=== PATIENT | female | born 1945 | race Caucasian/White ===

== ENCOUNTER → 2016-11-19 | Outpatient (CLI) | payer OTHER ==
[~2016-11-19] MED LIST: EPP3/2 IM
--- NOTE | 2016-11-19 16:13 | MAMMOGRAPHY REPORT ---
THIS REPORT HAS BEEN AMENDED. BILATERAL DIGITAL SCREENING MAMMOGRAM WITH CAD: 11/19/2016 CLINICAL HISTORY: Routine screening examination. TECHNIQUE: Bilateral CC and MLO views were obtained. Current study was also evaluated with a Comput er Aided Detection (CAD) system. COMPARISON: No prior exams were available for comparison. BREAST COMPOSITION: There are scattered areas of fibroglandular density in both breasts. FINDINGS: There are benign rim calcifications and coarse calcifications scattered in the breasts. N o suspicious mass, architectural distortion or cluster of microcalcifications is seen. IMPRESSION: ACR BI-RADS CATEGORY 1: NEGATIVE There is no mammographic evidence of malignancy. Prior outside mammograms are currently being reque sted and if obtained they will be reviewed, compared to the current exam to assess for any more subt le changes, and an addendum will be made to this report. Otherwise, a 1 year screening mammogram is recommended. The patient will receive written notification of the results. Approximately 10% of breast cancers are not detected with mammography. A negative mammographic repor t should not delay biopsy if a clinically suggestive mass is present. Ember Jones M.D. ay/:11/19/2016 14:36:32 Clinical Laboratory Assistant: Dia Boyle RT(R)(M), [facility] letter sent: Normal 10/20 BI-RADS Code: ACR BI-RADS Category 1: Negative AMENDMENT: 11/27/2016 Ember Jones M.D. [facility] 10/02/2011, 10/06/2012, 10/07/2013, 2014 and 11/07/2015 became available for review. There has been no significant interval change comp ared to the prior outside mammograms. Scattered bilateral benign rim calcifications are stable. No new suspicious mass, architectural distortion or suspicious microcalcifications are seen. Recommen ded follow-up in 1 year for next annual screening mammogram. Amended BI-RADS: ACR BI-RADS Category 2: Benign letter sent: Normal 10/20
== END | disposition home or self-care (01) ==
LOC: C.MAMM 09:53
PROVIDERS: ATTEND Family Medicine
DX: Z12.31 Encounter for screening mammogram for malignant neoplasm of breast (principal)

== ENCOUNTER 2021-09-16 11:54 | Inpatient (IN) ==
--- NOTE | 2021-09-16 14:41 | Electrocardiogram Report ---
Test Reason : Blood Pressure : / mmHG Vent. Rate : 090 BPM Atrial Rate : 090 BPM P-R Int : 144 ms QRS Dur : 058 ms QT Int : 374 ms P-R-T Axes : 058 210 066 degrees QTc Int : 457 ms Sinus rhythm with Premature atrial complexes Abnormal ECG When compared with ECG of 29-AUG-2012 20:33, Premature atrial complexes are now Present Questionable change in QRS axis Borderline criteria for Inferior infarct are no longer Present Nonspecific T wave abnormality no longer evident in Lateral leads Confirmed by Bernabe Fletcher ([id number]) on 09/16/2021 2:40:38 PM Referred By: Confirmed By:Johnson Fletcher
[2021-09-16 14:51] LABS: Basophils # (auto) 0.04 K/uL (0-0.2); Basophils % (auto) 0.4 %; Hematocrit (blood only) 44.6 % (37-47); Hemoglobin 15.6 g/dL (12.0-16.0); Immature Granulocytes # (auto) 0.01 K/uL (0.00-0.02); Immature Granulocytes % (auto) 0.1 %; Lymphocytes # (auto) 1.78 K/uL (1.2-3.4); Lymphocytes % (auto) 18.1 %; Mean Corpuscular Hemoglobin 32.8 pg (25-34); Mean Corpuscular Volume 93.7 fL (80-100); Mean Platelet Volume 9.2 fL (7.4-10.4); Monocytes # (auto) 0.62 K/uL (0.11-0.59); Monocytes % (auto) 6.3 %; Neutrophils # (auto) 7.27 K/uL (1.4-6.5); Neutrophils % (auto) 74.1 %; Platelet Count 310 K/uL (130-400); RDW Coefficient of Variation 13.8 % (11.5-14.5); RDW Standard Deviation 47.1 fL (36.4-46.3); Red Blood Count 4.76 M/uL (4.2-5.4); White Blood Count 9.82 K/uL (4.8-10.8)
[2021-09-16 15:05] LABS: Partial Thromboplastin Time 25.4 Seconds (21.0-31.0); Prothrombin Time 9.9 Seconds (9.0-12.0)
[2021-09-16 15:22] LABS: Alanine Aminotransferase 36 U/L (12-78); Albumin Level 3.8 gm/dl (3.4-5.0); Aspartate Aminotransferase 26 U/L (15-37); BUN Creatinine Ratio 17.5 (10-20); Blood Urea Nitrogen 11 mg/dl (7-18); Calcium 9.1 mg/dl (8.5-10.1); Carbon Dioxide 24 mmol/L (21-32); Chloride 103 mmol/L (98-107); Est GFR (African American) 102.8 ml/min; Est GFR (Non-African American) 88.7 ml/min; Glucose 102 mg/dl (70-99); Sodium 134 mmol/L (136-145)
[2021-09-16 15:27] LABS: Alkaline Phosphatase 68 U/L (45-117); Bilirubin,Total 0.7 mg/dl (0.2-1); Globulin 3.7 gm/dl (2.5-4.0); NT Pro B Type Natriuretic Pept 1919 pg/ml (0-900); Total Protein 7.5 gm/dl (6.4-8.2); Troponin I < 0.015 ng/ml (0-0.045)
[2021-09-16] MEDS ORDERED: ALBUT/IPRATROP 3MG/0.5MG NEB 3 ML VIAL INH STA (16:08)
[2021-09-16] MEDS ORDERED: methylPREDNISolone 125 MG/2 ML VIAL IV STA (16:08)
[2021-09-16 16:15] LABS: Base Excess VBG -0.6 mEq/L; HCO3 VBG 23 mmol/L; PCO2 VBG 37 mmHg (38-50); PO2 VBG 26 mmHg; pH VBG 7.42 (7.36-7.41)
[2021-09-16 16:22] LABS: Oxygen Saturation VBG < 60.0 %
--- NOTE | 2021-09-16 16:22 | XRay Report ---
XR chest 1V portable CLINICAL HISTORY: Dyspnea. COMPARISON STUDY: No previous studies for comparison. TECHNIQUE: 1 view of the chest FINDINGS: Single frontal view of the chest demonstrates the cardiomediastinal silhouette to be within normal li mits. There is hyperinflation of the lungs with attenuation of the pulmonary vasculature peripherally characteristic of underlying chronic obstructive pulmonary disease. Mild prominence of the interstit ial markings is present which appears chronic in nature. The lungs are clear of alveolar opacities. T here is no evidence for pleural effusion. There is no evidence for vascular congestion. There is no a cute osseous pathology. IMPRESSION: No acute cardiopulmonary disease. Evidence for COPD and probable interstitial lung diseas e. ACT 112: Negative or not required by law. Electronically signed by: Rosendo Alfred M.D. 09/16/2021 4:20 PM
--- NOTE | 2021-09-16 16:29 | Emergency Department Note ---
Impression & Plan Acute exacerbation of chronic obstructive pulmonary disease, Acute hypoxemic respiratory failure ED Provider Note NAME: STEVEN ARIZMENDI AGE: 76 SEX: F : 1945 ARRIVES VIA: Walk-In INFORMANT: Patient, ED PROVIDER(S): Marcos Hanks MD Chief Complaint: Shortness of breath HPI: Patient does present due to concern for worsening shortness of breath. Patient does have a known history of COPD. The patient has completed recent doses of steroids and nebulizer treatments but without significant improvement in symptoms. The patient has had significant exertional dyspnea but denies any orthopnea. No prior history of heart disease. Patient is a former smoker. Patient is vaccinated for Covid and flu. The patient does follow with Dr. Jung with pulmonology. Patient denies any chest pains or lower extremity swelling. Patient has been significantly restricted secondary to her shortness of breath. The patient does have at home oxygen available. Patient does wear it at nighttime. Patient denies any recent travel or known sick contacts. The patient does have chronic cough but this is unchanged from prior. Patient denies any prior history of DVT or PE. ROS: See HPI for pertinent positives and negatives. A total of 10 systems were reviewed and otherwise negative. Past medical history: See below Surgical history: See below Social history: See below Physical Exam: GENERAL: Mildly uncomfortable, nasal cannula in place, wearing a mask, non- toxic. EYE EXAM: Normal conjunctiva. PERRL, no anisocoria and EOM's grossly intact w/o pain. NECK: Supple, no nuchal rigidity, no adenopathy, non-tender. No signs of meningismus. LUNGS: Decreased breath sounds throughout. Normal chest wall mechanics. HEART: NSR, no MRG. ABDOMEN: Abdomen soft, non-tender, normo-active bowel sounds, no masses, no rebound or guarding. BACK: No CVA TTP. SKIN: No rashes and no bruising. UPPER EXTREMITIES: Upper extremities are grossly normal. LOWER EXTREMITIES: Grossly normal, no edema. Negative Homans' sign bilaterally. NEURO EXAM: A&O x3, cranial nerves II-XII grossly intact, normal speech, moves all 4 extremities on command w/o issue. Differential diagnoses: Reactive airway disease, pneumonia, pneumothorax, COPD, CHF, infections, cardiac ischemia, pulmonary embolism, musculoskeletal, gastrointestinal, as well as other pathologies. Course: Patient was seen and evaluated the bedside. Full history physical exam was performed. EKG interpreted by ky Sinus with PACs, rate of 90, normal intervals, right axis. No obvious ST elevations. Imaging Studies: See Below Cardiac monitoring: An order was placed for continuous cardiac monitoring. The monitor shows a rate of 82 with sinus rhythm. MDM: Patient did present due to concern for shortness of breath. Blood work was obtained along with EKG VBG. Given the patient's significant shortness of breath and the patient desatted into the 70s just transfer from wheelchair to the bed. The patient was on 3 to 4 L nasal cannula supplemental oxygen which the patient has at home but the patient does not typically wear oxygen all the time. Patient does have significant HANNA. The patient's EKG from August 2012 is not appear that much change compared to today. Patient denies any chest pains. Troponin is not detectable but does have mild elevation in BNP. Chest x- ray shows COPD and interstitial lung disease. CT angiography was ordered. Pat ient has a normal white count H&H and platelet count. The patient's ABG shows a relatively normal pH with a PCO2 of 37. Kidney function is unremarkable. Upon reassessment the patient did have mild improvement in her symptoms. I did speak to the on-call hospitalist Maurice Rushing PA-C and the patient was admitted by Dr. Brown. Critical Care: I have personally spent 47 minutes of critical care time in direct management of this patient. This includes bedside care, interpretation of diagnostic studies, and testing, discussion with consultants, patient, and family members, and other require inpatient management activities. This 47 minutes is in excess of all separately billable procedures. Past Med/Surg History Medical History Abnormal CT scan, chest Allergic rhinitis Chronic hypoxemic respiratory failure Chronic obstructive pulmonary disease COPD (chronic obstructive pulmonary disease) with emphysema COPD, group D, by GOLD 2017 classification Degenerative joint disease, foot, left Diabetes mellitus, type 2 NIDDM Hearing deficit Hyperlipidemia Left foot pain [place] neuroma Multiple pulmonary nodules determined by computed tomography of lung Pulmonary air trapping Pulmonary emphysema Secondary pulmonary hypertension Solitary pulmonary nodule Surgical History History of cataract surgery BILATERAL History of colonoscopy History of hysterectomy CORINNA WITH BSO History of laparoscopy Family History Mother Vulva cancer Father Lung cancer Social History Smoking Status: Never smoker Second Hand Exposure: Yes (REMOTE HISTORY); Hx Alcohol Use: No Hx Substance Use: No Preferred Language: Togolese Communication Ability: Effective Instant Pot[employer] Required: No Beliefs That Will Affect Care: None Current Living Situation: Spouse Feels Safe at Home: Yes Assistive Devices: Glasses and Hearing Aid - Bilateral Allergies Allergies Allergy/AdvReac Type Severity Reaction Status Date / Time Penicillins Allergy Severe Anaphylaxis Verified 09/16/21 16:29 adhesive tape Allergy Unknown Rash Verified 09/16/21 16:29 amoxicillin Allergy Unknown Verified 09/16/21 16:29 ciprofloxacin Allergy Unknown Verified 09/16/21 16:29 fluconazole [From Diflucan] Allergy Unknown Verified 09/16/21 16:29 Sulfa (Sulfonamide Allergy Unknown Verified 09/16/21 16:29 Antibiotics) Home Meds Home Medications Medication Instructions Recorded Confirmed atorvastatin 20 mg tablet (Lipitor) 20 mg PO HS 10/26/18 09/16/21 conjugated estrogens 0.3 mg tablet 0.03 mg PO Q2D 10/26/18 09/16/21 (Premarin) metformin 500 mg tablet 500 mg PO BID 10/26/18 09/16/21 fluticasone propionate 50 1 sprays INTNAS DAILY 05/21/20 09/16/21 mcg/actuation nasal spray,suspension furosemide 20 mg tablet (Lasix) 20 mg PO .COMPLEX 05/21/20 09/16/21 ipratropium 0.5 mg-albuterol 3 mg 3 ml INH Q6H PRN 05/21/20 09/16/21 (2.5 mg base)/3 mL nebulization soln potassium chloride 10 mEq 10 meq PO .COMPLEX 05/21/20 09/16/21 capsule,extended release ascorbic acid (vitamin C) 100 mg 100 mg PO Q2D 09/16/21 09/16/21 tablet (Vitamin C) cholecalciferol (vitamin D3) 25 25 mcg PO QAM 09/16/21 09/16/21 mcg (1,000 unit) tablet (Vitamin D3) coenzyme Q10 10 mg capsule 10 mg PO Q2D 09/16/21 09/16/21 fluticasone fur. 100 mcg-umeclid 1 inh INH QAM 09/16/21 09/16/21 62.5 mcg-vilant 25 mcg inhalat.powder (Trelegy Ellipta) ibuprofen 200 mg tablet 400 mg PO Q6H PRN 09/16/21 09/16/21 multivitamin 1 tab PO Q2D 09/16/21 09/16/21 vitamin B12 0.5 mg-folic acid 1 mg 1 tab PO QAM 09/16/21 09/16/21 tablet Previous Rx's Medication Instructions Recorded Oxygen Home #2 l 05/30/20 Portable Oxygen #1 ea 06/27/20 albuterol sulfate 90 mcg/actuation 2 inh INH Q6H PRN #18 g 03/11/21 aerosol inhaler Results & Data (ED) Vital Signs Vital Signs - 24 hr 09/16/21 12:14 09/16/21 16:49 09/16/21 17:04 Temperature 36.4 C L Temperature Source Temporal Artery Scan Pulse Rate 83 Pulse Rate [Right Finger] 83 80 Respiratory Rate 18 18 18 Respiratory Effort / Characteristics Non-Labored Spontaneous Spontaneous Respiratory Depth Normal Respiratory Pattern Regular Blood Pressure 152/79 H Blood Pressure Mean 103 Pulse Oximetry 92 92 94 Oxygen Delivery Method Nasal Cannula Nasal Cannula Nasal Cannula Oxygen Flow Rate 3 4 4 Sepsis Recent Fever Within 48 Hours No Sepsis New/Unexplained Change in Mental Status No Sepsis Action Taken by Nursing No Action Required Home Medications Current Medication List: was personally reviewed by me Laboratory Data Attestation: I reviewed the patient's lab results. Result diagrams: 09/16/21 14:38 09/16/21 14:38 Lab Results 09/16/21 09/16/21 09/16/21 Range/Units 14:38 14:38 14:38 WBC 9.82 (4.8-10.8) K/uL RBC 4.76 (4.2-5.4) M/uL Hgb 15.6 (12.0-16.0) g/dL Hct 44.6 (37-47) % MCV 93.7 (80-100) fL MCH 32.8 (25-34) pg MCHC 35.0 (32-36) g/dL RDW Std Deviation 47.1 H (36.4-46.3) fL RDW Coeff of Theresa 13.8 (11.5-14.5) % Plt Count 310 (130-400) K/uL MPV 9.2 (7.4-10.4) fL Immature Gran % (Auto) 0.1 % Neut % (Auto) 74.1 % Lymph % (Auto) 18.1 % [place] % (Auto) 6.3 % Eos % (Auto) 1.0 % Baso % (Auto) 0.4 % Neut # (Auto) 7.27 H (1.4-6.5) K/uL Lymph # (Auto) 1.78 (1.2-3.4) K/uL [place] # (Auto) 0.62 H (0.11-0.59) K/uL Eos # (Auto) 0.10 (0-0.5) K/uL Baso # (Auto) 0.04 (0-0.2) K/uL Immature Gran # (Auto) 0.01 (0.00-0.02) K/uL PT 9.9 (9.0-12.0) Seconds INR 1.0 (0.9-1.1) APTT 25.4 (21.0-31.0) Seconds PTT Ratio 1.0 VBG pH (7.36-7.41) VBG pCO2 (38-50) mmHg VBG pO2 mmHg VBG HCO3 mmol/L VBG O2 Saturation % VBG Base Excess mEq/L Barometric Pressure mm/Hg Sodium 134 L (136-145) mmol/L Potassium 4.0 (3.5-5.1) mmol/L Chloride 103 (98-107) mmol/L Carbon Dioxide 24 (21-32) mmol/L Anion Gap 7.0 (3-11) BUN 11 (7-18) mg/dl Creatinine 0.61 (0.6-1.2) mg/dl Est Cr Clr Drug Dosing Not Reportable Est GFR ( Amer) 102.8 ml/min Est GFR (Non-Af Amer) 88.7 ml/min BUN/Creatinine Ratio 17.5 (10-20) Glucose 102 H (70-99) mg/dl Calcium 9.1 (8.5-10.1) mg/dl Magnesium (1.8-2.4) mg/dl Total Bilirubin 0.7 (0.2-1) mg/dl AST 26 (15-37) U/L ALT 36 (12-78) U/L Alkaline Phosphatase 68 (45-117) U/L Troponin I < 0.015 (0-0.045) ng/ml NT-Pro-B Natriuret Pep 1919 H (0-900) pg/ml Total Protein 7.5 (6.4-8.2) gm/dl Albumin 3.8 (3.4-5.0) gm/dl Globulin 3.7 (2.5-4.0) gm/dl Albumin/Globulin Ratio 1.0 (0.9-2) 09/16/21 09/16/21 Range/Units 14:38 16:02 WBC (4.8-10.8) K/uL RBC (4.2-5.4) M/uL Hgb (12.0-16.0) g/dL Hct (37-47) % MCV (80-100) fL MCH (25-34) pg MCHC (32-36) g/dL RDW Std Deviation (36.4-46.3) fL RDW Coeff of Theresa (11.5-14.5) % Plt Count (130-400) K/uL MPV (7.4-10.4) fL Immature Gran % (Auto) % Neut % (Auto) % Lymph % (Auto) % [place] % (Auto) % Eos % (Auto) % Baso % (Auto) % Neut # (Auto) (1.4-6.5) K/uL Lymph # (Auto) (1.2-3.4) K/uL [place] # (Auto) (0.11-0.59) K/uL Eos # (Auto) (0-0.5) K/uL Baso # (Auto) (0-0.2) K/uL Immature Gran # (Auto) (0.00-0.02) K/uL PT (9.0-12.0) Seconds INR (0.9-1.1) APTT (21.0-31.0) Seconds PTT Ratio VBG pH 7.42 H (7.36-7.41) VBG pCO2 37 L (38-50) mmHg VBG pO2 26 mmHg VBG HCO3 23 mmol/L VBG O2 Saturation < 60.0 % VBG Base Excess -0.6 mEq/L Barometric Pressure 731.3 mm/Hg Sodium (136-145) mmol/L Potassium (3.5-5.1) mmol/L Chloride (98-107) mmol/L Carbon Dioxide (21-32) mmol/L Anion Gap (3-11) BUN (7-18) mg/dl Creatinine (0.6-1.2) mg/dl Est Cr Clr Drug Dosing Est GFR ( Amer) ml/min Est GFR (Non-Af Amer) ml/min BUN/Creatinine Ratio (10-20) Glucose (70-99) mg/dl Calcium (8.5-10.1) mg/dl Magnesium 2.1 (1.8-2.4) mg/dl Total Bilirubin (0.2-1) mg/dl AST (15-37) U/L ALT (12-78) U/L Alkaline Phosphatase (45-117) U/L Troponin I (0-0.045) ng/ml NT-Pro-B Natriuret Pep (0-900) pg/ml Total Protein (6.4-8.2) gm/dl Albumin (3.4-5.0) gm/dl Globulin (2.5-4.0) gm/dl Albumin/Globulin Ratio (0.9-2) Administered Medications Discontinued Medications Albuterol (Albut/Ipratrop 3mg/0.5mg Neb 3 Ml Vial) 3 ml INH NOW STA Stop: 09/16/21 16:09 Last Admin: 09/16/21 16:49 Dose: 3 ml Documented by: [id number] Ioversol (Optiray 320 125ml) 120 ml IV ONCE ONE Stop: 09/16/21 16:40 Last Admin: 09/16/21 16:39 Dose: 1 ml Documented by: [id number] Methylprednisolone (Methylprednisolone 125 Mg/2 Ml Vial) 60 mg IV NOW STA Stop: 09/16/21 16:09 Last Admin: 09/16/21 16:54 Dose: 60 mg Documented by: [id number] Imaging Data Radiologist's Impression: Chest X-Ray 09/16/21 13:59 XR chest 1V portable CLINICAL HISTORY: Dyspnea. COMPARISON STUDY: No previous studies for comparison. TECHNIQUE: 1 view of the chest FINDINGS: Single frontal view of the chest demonstrates the cardiomediastinal silhouette to be within normal limits. There is hyperinflation of the lungs with attenuation of the pulmonary vasculature peripherally characteristic of underlying chronic obstructive pulmonary disease. Mild prominence of the interstitial markings is present which appears chronic in nature. The lungs are clear of alveolar opacities. There is no evidence for pleural effusion. There is no evidence for vascular congestion. There is no acute osseous pathology. IMPRESSION: No acute cardiopulmonary disease. Evidence for COPD and probable interstitial lung disease. ACT 112: Negative or not required by law. Electronically signed by: Rosendo Alfred M.D. 09/16/2021 4:20 PM Chest CTA 09/16/21 16:09 CT ANGIOGRAM OF THE CHEST CLINICAL HISTORY: Dyspnea. COMPARISON STUDY: Chest CT dated 07/10/2020. Chest x-ray dated 09/16/2021. TECHNIQUE: Following the IV administration of 120 cc of Optiray 320, CT angiogram of the chest was performed from the upper abdomen to the thoracic inlet utilizing the pulmonary embolus protocol. Images are reviewed in the axial, sagittal, and coronal planes. 3-D MIPS images are created and assessed. IV contrast was administered without complication. A dose lowering technique was utilized adhering to the principles of ALARA. The examination is compromised by motion artifact. CT DOSE: 243.75 mGy.cm FINDINGS: Thyroid: Imaged portions of the thyroid gland are normal in size and attenuation. Thoracic aorta: There is atherosclerotic calcification of the thoracic aorta, which is normal in caliber and demonstrates standard 3-vessel arch anatomy. No dissection is seen. There is at least mild stenosis at the origin of the left subclavian artery. Pulmonary vasculature: The pulmonary trunk is normal in caliber. There are no filling defects identified in main, lobar, or proximal segmental pulmonary branches to suggest pulmonary embolus. Evaluation of the segmental and subsegmental branches is significantly degraded in the lower lobes by motion artifact. Heart: The heart is normal in size and without pericardial effusion. There are coronary artery calcifications. Reflux of contrast into the IVC and hepatic veins suggests cardiac dysfunction. Lungs and pleural spaces: Evaluation of the lung parenchyma is compromised by mo tion artifact. Advanced emphysematous change is identified. There are small pleural effusions with bibasilar atelectasis the trachea and central airways appear clear. A 7 mm pleural-based nodule is seen in the left lower lobe along the major fissure on image #140. A six-month or pleural-based nodule in the left lower lobe as seen on image #163. A pleural-based nodule in the right lower lobe along the major fissure on image #127 is largely obscured by motion artifact. This is likely unchanged from previous. Mediastinum: There are mildly enlarged and is dominant lymph nodes. An AP window node measures 11 mm in short axis. Precarinal nodes measure up to 15 mm in short axis. Lyly: Enlarged hilar nodes measure up to 16 mm in short axis. Axillae: There is no axillary lymphadenopathy. Upper abdomen: Partially visualized upper abdominal viscera is within normal limits. Skeletal structures: The skeletal structures are osteopenic. Degenerative change and hyperkyphosis are noted in the thoracic spine. No lytic or blastic bony lesions are seen. Arthritic change is seen in the shoulders. IMPRESSION: 1. Motion compromised examination. 2. There is no evidence of pulmonary embolus in the main, lobar, or proximal segmental pulmonary arteries. Evaluation of the segmental and subsegmental lower lobe pulmonary arteries is significantly degraded by motion. 3. Advanced emphysema. 4. Small pleural effusions. 5. Mildly enlarged mediastinal and hilar lymph nodes are nonspecific and may be reactive. Clinical correlation will be required. 6. Subcentimeter pulmonary and pleural-based nodules are nonspecific and likely unchanged from prior studies. 7. Additional findings as above. ACT 112: Negative or not required by law. Electronically signed by: Moiz Powell M.D. 09/16/2021 5:10 PM Discharge Plan Visit Data Chief Complaint: Respiratory Problems Stated Complaint: HARD TO BREATHE,REF BY DOC ED Provider: Marcos Hanks Discharge Problem: Acute exacerbation of chronic obstructive pulmonary disease, Acute hypoxemic respiratory failure Patient Disposition: Admitted As Inpatient Forms Stand Alone Forms: [facility] Prescriptions Prescriptions: No Action (DME) Oxygen Home Liters Per Minute See Rx Instructions .ROUTE .MEDSUPPLY Qty: 2 RF: 0 (DME) Portable Oxygen Misc See Rx Instructions .ROUTE .MEDSUPPLY Qty: 1 RF: 0 albuterol sulfate 90 mcg/actuation HFA aerosol inhaler 2 inh INH Q6H PRN (Reason: shortness of breath or wheezing) Qty: 18 RF: 2 furosemide [Lasix] 20 mg tablet 20 mg PO .COMPLEX RF: 0 ipratropium-albuterol 0.5 mg-3 mg(2.5 mg base)/3 mL solution for nebulization 3 ml INH Q6H PRN (Reason: Shortness Of Breath) RF: 0 fluticasone propionate 50 mcg/actuation spray,suspension 1 sprays INTNAS DAILY RF: 0 potassium chloride 10 mEq capsule, extended release 10 meq PO .COMPLEX RF: 0 metformin 500 mg Tablet 500 mg PO BID RF: 0 atorvastatin [Lipitor] 20 mg Tablet 20 mg PO HS RF: 0 Premarin 0.3 mg Tablet 0.03 mg PO Q2D RF: 0 multivitamin Tablet 1 tab PO Q2D RF: 0 coenzyme Q10 10 mg Capsule 10 mg PO Q2D RF: 0 Vitamin C 100 mg Tablet 100 mg PO Q2D RF: 0 ibuprofen 200 mg Tablet 400 mg PO Q6H PRN (Reason: Pain) RF: 0 vitamin [id number] 0.5-1 mg Tablet 1 tab PO QAM RF: 0 cholecalciferol (vitamin D3) [Vitamin D3] 25 mcg (1,000 unit) Tablet 25 mcg PO QAM RF: 0 Trelegy Ellipta 100-62.5-25 mcg blister with device 1 inh INH QAM RF: 0 Referrals Referrals: Gary Sawant MD [Primary Care Provider] -
[2021-09-16] MEDS ORDERED: OPTIRAY 320 125ml IV ONE (16:39)
--- NOTE | 2021-09-16 17:07 | History & Physical Report ---
Date of Service September 16, 2021 Assessment & Plan (1) Acute exacerbation of chronic obstructive pulmonary disease: (2) Acute hypoxemic respiratory failure: Plan: This is a 76-year-old female with PMH of COPD requiring oxygen at night, ILD, type 2 diabetes, dyslipidemia and other medical problems listed below who presents with progressive shortness of breath over the past few days. Progressive dyspnea on exertion. Completed Azythromycin course x 2 and prednis one taper x 1 in last month as outpatient Desaturated into high 70s when ambulating from wheelchair to bed in ED - now 92% on 4L NC No leukocytosis. VBG pH 7.4. Flu negative, covid PCR pending Chest CTA motion compromised but no evidence of PE, advanced emphysema, small pleural effusions, mildly enlarged mediastinal and hilar lymph nodes that are nonspecific. Pulm nodules unchanged from prior studies Afebrile, no leukocytosis or opacities on imaging to suggest PNA Continue solu-medrol 40mg IV Q8H, Duonebs QIDR, incentive spirometry, supplemental O2 PT/OT evaluations once more stable from respiratory standpoint (3) Diabetes mellitus, type 2: Plan: A1c 6.3 in May 2021. 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 Continue losartan, Toprol, Lasix MWF (5) Hyperlipidemia: Plan: Continue statin DVT Ppx: SQ Lovenox Code status: FULL PCP: Jese Dispo: Admitted to [facility] Patient seen in collaboration with Dr. Brown. Please see addendum. History of Present Illness Chief Complaint: Shortness of breath Primary Care Provider: Gary Sawant MD This is a 76-year-old female with PMH of COPD requiring oxygen at night, ILD, type 2 diabetes, dyslipidemia and other medical problems listed below who presents with progressive shortness of breath over the past few days months. At baseline, patient is able to ambulate and complete ADLs with minimal shortness of breath. Always wears 2 L NC O2 at bedtime and sometimes during the day when completing chores. However, has felt a flare of shortness of breath with exertion since last month when she completed course of azithromycin and prednisone taper. Symptoms persisted, and patient completed another course of azithromycin and followed up with PCP. Was noted to desaturate on home O2 with any type of movement like ambulation out of wheelchair or into shower. Even while on oxygen, notes saturation went down into the high 70s when she attempted to shower today. Was seen in clinic and urged to come to ED for further evaluation. Patient currently saturating at 94% on 4 L nasal cannula. Denies any fever, chills, cough or recent known viral infection. Did have some chest pain a month ago but had EKGs done in clinic that were unchanged. Chest pain is not persisted since then. Denies any wheezing, congestion, nausea, vomiting, abdominal pain, dysuria, diarrhea or constipation. Has been taking Trelegy inhaler daily as well as albuterol as needed. Is not very compliant with nebulizer treatments at home. Follows with Dr. Perez in pulmonology clinic. Allergies Allergy/AdvReac Type Severity Reaction Status Date / Time Penicillins Allergy Severe Anaphylaxis Verified 09/16/21 16:29 adhesive tape Allergy Unknown Rash Verified 09/16/21 16:29 amoxicillin Allergy Unknown Verified 09/16/21 16:29 ciprofloxacin Allergy Unknown Verified 09/16/21 16:29 fluconazole [From Diflucan] Allergy Unknown Verified 09/16/21 16:29 Sulfa (Sulfonamide Allergy Unknown Verified 09/16/21 16:29 Antibiotics) Home Medications Medication Instructions Recorded Confirmed Type atorvastatin 20 mg tablet (Lipitor) 20 mg PO HS 10/26/18 09/16/21 History conjugated estrogens 0.3 mg tablet 0.03 mg PO Q2D 10/26/18 09/16/21 History (Premarin) metformin 500 mg tablet 500 mg PO BID 10/26/18 09/16/21 History fluticasone propionate 50 1 sprays INTNAS DAILY 05/21/20 09/16/21 History mcg/actuation nasal spray,suspension furosemide 20 mg tablet (Lasix) 20 mg PO .COMPLEX 05/21/20 09/16/21 History ipratropium 0.5 mg-albuterol 3 mg 3 ml INH Q6H PRN 05/21/20 09/16/21 History (2.5 mg base)/3 mL nebulization soln potassium chloride 10 mEq 10 meq PO .COMPLEX 05/21/20 09/16/21 History capsule,extended release Oxygen Home #2 l 05/30/20 07/12/21 Rx Portable Oxygen #1 ea 06/27/20 07/12/21 Rx albuterol sulfate 90 mcg/actuation 2 inh INH Q6H PRN #18 g 03/11/21 09/16/21 Rx aerosol inhaler ascorbic acid (vitamin C) 100 mg 100 mg PO Q2D 09/16/21 09/16/21 History tablet (Vitamin C) cholecalciferol (vitamin D3) 25 25 mcg PO QAM 09/16/21 09/16/21 History mcg (1,000 unit) tablet (Vitamin D3) coenzyme Q10 10 mg capsule 10 mg PO Q2D 09/16/21 09/16/21 History fluticasone fur. 100 mcg-umeclid 1 inh INH QAM 09/16/21 09/16/21 History 62.5 mcg-vilant 25 mcg inhalat.powder (Trelegy Ellipta) ibuprofen 200 mg tablet 400 mg PO Q6H PRN 09/16/21 09/16/21 History losartan 25 mg tablet 25 mg PO DAILY 09/16/21 09/16/21 History meclizine 25 mg tablet 12.5 mg PO TID PRN 09/16/21 09/16/21 History metoprolol succinate 25 mg 12.5 mg PO DAILY 09/16/21 09/16/21 History tablet,extended release 24 hr multivitamin 1 tab PO Q2D 09/16/21 09/16/21 History promethazine 25 mg tablet 25 mg PO Q6H PRN 09/16/21 09/16/21 History vitamin B12 0.5 mg-folic acid 1 mg 1 tab PO QAM 09/16/21 09/16/21 History tablet Past Med/Surg History Medical History (Updated 09/16/21 @ 19:07 by Sharita Rushing PA-C) Abnormal CT scan, chest Allergic rhinitis Chronic hypoxemic respiratory failure Chronic obstructive pulmonary disease COPD (chronic obstructive pulmonary disease) with emphysema COPD, group D, by GOLD 2017 classification Degenerative joint disease, foot, left Diabetes mellitus, type 2 NIDDM Hearing deficit History of colon polyps HTN (hypertension) Hyperlipidemia [place] neuroma Multiple pulmonary nodules determined by computed tomography of lung Pulmonary air trapping Pulmonary emphysema Secondary pulmonary hypertension Solitary pulmonary nodule Surgical History History of cataract surgery BILATERAL History of colonoscopy History of hysterectomy CORINNA WITH BSO History of laparoscopy Family History Mother Vulva cancer Father Lung cancer Social History Smoking Status: Never smoker Second Hand Exposure: Yes (REMOTE HISTORY); Hx Alcohol Use: No Hx Substance Use: No Preferred Language: Malaysian Communication Ability: Effective 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 Physical Exam Physical Exam: General Appearance: WD/WN, vitals as above, NAD, sitting up in bed, pleasant, conversing easily Head: normocephalic, atraumatic Eyes: normal inspection, PERRL, conjunctivae normal, anicteric sclerae ENT: external ear and nose normal, oropharynx normal Neck: normal visual inspection, trachea midline, no thyromegaly Respiratory: normal respiratory effort, decreased lung sounds throughout. No wheeze, rales or rhonchi. No accessory muscle use Cardiovascular: regular rate, rhythm, no murmur, normal peripheral pulses, no BLE edema. Vessels: no JVD Chest: normal inspection of chest Abdomen/GI: normal bowel sounds, soft, nontender, no hepatosplenomegaly Extremities/Musculoskeletal: no cyanosis or clubbing, extremities motor strength 5/5 Neurologic: PERRL, EOMI, accommodation nl, no face palsy, no dysarthria, CN's II-XI intact bilaterally and moves all extremities Psychiatric: A+Ox3, euthymic affect Skin: no rashes, normal color, warm/dry Results & Data Results & [facility] ([facility]) Vital Signs (Past 12 Hours) Vital Signs Temp Pulse Pulse Resp BP Pulse Ox 09/16/21 16:49 83 18 92 09/16/21 12:14 36.4 C L 83 18 152/79 H 92 Laboratory Results Short CBC 09/16/21 Range/Units 14:38 WBC 9.82 (4.8-10.8) K/uL Hgb 15.6 (12.0-16.0) g/dL Hct 44.6 (37-47) % Plt Count 310 (130-400) K/uL BMP 09/16/21 14:38 Sodium 134 L Potassium 4.0 Chloride 103 Carbon Dioxide 24 BUN 11 Creatinine 0.61 Glucose 102 H Calcium 9.1 Cardiac Enzymes 09/16/21 Range/Units 14:38 Troponin I < 0.015 (0-0.045) ng/ml Liver Function 09/16/21 Range/Units 14:38 Total Bilirubin 0.7 (0.2-1) mg/dl AST 26 (15-37) U/L ALT 36 (12-78) U/L Alkaline Phosphatase 68 (45-117) U/L Albumin 3.8 (3.4-5.0) gm/dl Diagnostic Findings Short CBC 09/16/21 Range/Units 14:38 WBC 9.82 (4.8-10.8) K/uL Hgb 15.6 (12.0-16.0) g/dL Hct 44.6 (37-47) % Plt Count 310 (130-400) K/uL BMP 09/16/21 14:38 Sodium 134 L Potassium 4.0 Chloride 103 Carbon Dioxide 24 BUN 11 Creatinine 0.61 Glucose 102 H Calcium 9.1 Cardiac Enzymes 09/16/21 Range/Units 14:38 Troponin I < 0.015 (0-0.045) ng/ml Liver Function 09/16/21 Range/Units 14:38 Total Bilirubin 0.7 (0.2-1) mg/dl AST 26 (15-37) U/L ALT 36 (12-78) U/L Alkaline Phosphatase 68 (45-117) U/L Albumin 3.8 (3.4-5.0) gm/dl Supervising Physician Co-Signing Physician Notes Attending addendum The patient was seen and examined in emergency room and in presence of the Has been more shortness of breath for 1 week Denies any fever and or chills Finished 2 courses of azithromycin recently On examination Short of breath at rest and requiring 4 L to maintain saturation Chest-decreased breath sounds all over Heart-S1-S2, regular Abdomen-benign Extremities-no edema 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
--- NOTE | 2021-09-16 17:11 | CT Scan Report ---
CT ANGIOGRAM OF THE CHEST CLINICAL HISTORY: Dyspnea. COMPARISON STUDY: Chest CT dated 07/10/2020. Chest x-ray dated 09/16/2021. TECHNIQUE: Following the IV administration of 120 cc of Optiray 320, CT angiogram of the chest was pe rformed from the upper abdomen to the thoracic inlet utilizing the pulmonary embolus protocol. Images are reviewed in the axial, sagittal, and coronal planes. 3-D MIPS images are created and assessed. I V contrast was administered without complication. A dose lowering technique was utilized adhering to the principles of ALARA. The examination is compromised by motion artifact. CT DOSE: 243.75 mGy.cm FINDINGS: Thyroid: Imaged portions of the thyroid gland are normal in size and attenuation. Thoracic aorta: There is atherosclerotic calcification of the thoracic aorta, which is normal in kimmy ammon and demonstrates standard 3-vessel arch anatomy. No dissection is seen. There is at least mild st enosis at the origin of the left subclavian artery. Pulmonary vasculature: The pulmonary trunk is normal in caliber. There are no filling defects identif ied in main, lobar, or proximal segmental pulmonary branches to suggest pulmonary embolus. Evaluation of the segmental and subsegmental branches is significantly degraded in the lower lobes by motion ar tifact. Heart: The heart is normal in size and without pericardial effusion. There are coronary artery calcif ications. Reflux of contrast into the IVC and hepatic veins suggests cardiac dysfunction. Lungs and pleural spaces: Evaluation of the lung parenchyma is compromised by motion artifact. Advanc ed emphysematous change is identified. There are small pleural effusions with bibasilar atelectasis t he trachea and central airways appear clear. A 7 mm pleural-based nodule is seen in the left lower lo be along the major fissure on image #140. A six-month or pleural-based nodule in the left lower lobe as seen on image #163. A pleural-based nodule in the right lower lobe along the major fissure on imag e #127 is largely obscured by motion artifact. This is likely unchanged from previous. Mediastinum: There are mildly enlarged and is dominant lymph nodes. An AP window node measures 11 mm in short axis. Precarinal nodes measure up to 15 mm in short axis. Lyly: Enlarged hilar nodes measure up to 16 mm in short axis. Axillae: There is no axillary lymphadenopathy. Upper abdomen: Partially visualized upper abdominal viscera is within normal limits. Skeletal structures: The skeletal structures are osteopenic. Degenerative change and hyperkyphosis ar e noted in the thoracic spine. No lytic or blastic bony lesions are seen. Arthritic change is seen in the shoulders. IMPRESSION: 1. Motion compromised examination. 2. There is no evidence of pulmonary embolus in the main, lobar, or proximal segmental pulmonary [place]. Evaluation of the segmental and subsegmental lower lobe pulmonary arteries is significantly deg raded by motion. 3. Advanced emphysema. 4. Small pleural effusions. 5. Mildly enlarged mediastinal and hilar lymph nodes are nonspecific and may be reactive. Clinical co rrelation will be required. 6. Subcentimeter pulmonary and pleural-based nodules are nonspecific and likely unchanged from prior studies. 7. Additional findings as above. ACT 112: Negative or not required by law. Electronically signed by: Moiz Powell M.D. 09/16/2021 5:10 PM
[2021-09-16] MEDS ORDERED: ALBUTEROL HFA 8 GM INHALER INH PRN (17:35)
[2021-09-16] MEDS ORDERED: ALBUT/IPRATROP 3MG/0.5MG NEB 3 ML VIAL INH PRN (17:35)
[2021-09-16] MEDS ORDERED: NON-FORMULARY MEDICATION (Ascorbic Acid (Vitamin C) [Vitamin C] 100 mg Tablet) PO SCH (17:45)
[2021-09-16 17:51] LABS: Influenza A virus by PCR Negative (Negative); Influenza B virus by PCR Negative (Negative)
[2021-09-16] MEDS ORDERED: MECLIZINE 12.5 MG TAB PO PRN (19:36)
[2021-09-16] MEDS ORDERED: CARBOHYDRATES FOR HYPOGLYCEMIA PO PRN ×2 (19:45→23:18)
[2021-09-16] MEDS ORDERED: GLUCAGON FOR INJ 1 MG VIAL IM PRN (19:45)
[2021-09-16] MEDS ORDERED: GLUCOSE 10 TABS/TUBE PO PRN ×2 (19:45→23:18)
[2021-09-16] MEDS ORDERED: DEXTROSE 50% 50 ML SYRINGE IV PRN ×2 (19:45→23:18)
[2021-09-16] MEDS ORDERED: GLUCOSE 40% GEL 15 GM TUBE PO PRN ×2 (19:45→23:18)
[2021-09-16] MEDS ORDERED: ACETAMINOPHEN 325 MG TAB PO PRN (23:18)
[2021-09-16] MEDS ORDERED: GLUCAGON FOR INJ 1 MG VIAL SQ PRN (23:18)
[2021-09-16] MEDS ORDERED: POLYETHYLENE (MIRALAX) 17 GM PACK PO PRN (23:18)
[2021-09-16] MEDS: ATORVASTATIN 20 MG TAB PO SCH (23:37)
[2021-09-16] MEDS: INSULIN ASPART 100 UNITS/ML 3 ML PEN SC SCH (23:37)
[2021-09-16] MEDS: ALBUT/IPRATROP 3MG/0.5MG NEB 3 ML VIAL NEB SCH (23:42)
[2021-09-17] MEDS: ENOXAPARIN INJ 40 MG/0.4 ML SYR SQ SCH ×2 (00:01→21:18)
[2021-09-17] MEDS: methylPREDNISolone 40 MG in SYRINGE 0 ML IV SCH ×3 (03:23→17:59)
[2021-09-17 06:47] LABS: Hematocrit (blood only) 41.7 % (37-47); Hemoglobin 14.5 g/dL (12.0-16.0); Mean Corpuscular Hemoglobin 32.5 pg (25-34); Mean Corpuscular Hgb Conc 34.8 g/dL (32-36); Mean Corpuscular Volume 93.5 fL (80-100); Mean Platelet Volume 9.4 fL (7.4-10.4); Platelet Count 291 K/uL (130-400); RDW Coefficient of Variation 13.8 % (11.5-14.5); RDW Standard Deviation 47.1 fL (36.4-46.3); Red Blood Count 4.46 M/uL (4.2-5.4)
[2021-09-17 07:00] LABS: Estimated Average Glucose 128 mg/dl; Hemoglobin A1C 6.1 % (4.5-5.6)
[2021-09-17 07:09] LABS: BUN Creatinine Ratio 20.8 (10-20); Calcium 8.8 mg/dl (8.5-10.1); Creatinine Clr Calc Pharmacy 80.7 ml/min; Est GFR (African American) 108.3 ml/min; Est GFR (Non-African American) 93.5 ml/min; Magnesium 2.1 mg/dl (1.8-2.4); Phosphorus 4.4 mg/dl (2.5-4.9); Potassium 4.5 mmol/L (3.5-5.1)
[2021-09-17] MEDS: ALBUT/IPRATROP 3MG/0.5MG NEB 3 ML VIAL NEB SCH ×4 (07:40→17:51)
[2021-09-17] MEDS: METOPROLOL SUCC 25MG EXT REL TAB PO SCH (08:28)
[2021-09-17] MEDS: CHOLECALCIFEROL 1,000 UNITS 25 MCG TAB PO SCH (08:28)
[2021-09-17] MEDS: UMECLIDINIUM/VILANTEROL 62.5/25MCG 7 PUFFS/INHALER INH SCH (08:29)
[2021-09-17] MEDS: FLUTICASONE PROPIONATE NA SPR 16 GM BTL NAE SCH (08:29)
[2021-09-17] MEDS: LOSARTAN POTASSIUM 25 MG TAB PO SCH (08:29)
[2021-09-17] MEDS: FLUTICASONE FUROATE 100MCG 14 PUFFS/INHALER INH SCH (08:29)
[2021-09-17] MEDS: INSULIN ASPART 100 UNITS/ML 3 ML PEN SC SCH ×4 (08:30→21:17)
[2021-09-17] MEDS ORDERED: NON-FORMULARY MEDICATION (Vitamin B12-Folic Acid 0.5-1 mg Tablet) PO SCH (09:00)
--- NOTE | 2021-09-17 12:04 | Hospitalist Progress Note ---
Date of Service September 17, 2021 Assessment & Plan (1) Acute exacerbation of chronic obstructive pulmonary disease: (2) Acute hypoxemic respiratory failure: Plan: This is a 76-year-old female with PMH of COPD requiring oxygen at night, ILD, type 2 diabetes, dyslipidemia and other medical problems listed below who presents with progressive shortness of breath over the past few days. Progressive dyspnea on exertion. Completed Azythromycin course x 2 and prednis one taper x 1 in last month as outpatient Desaturated into high 70s when ambulating from wheelchair to bed in ED - now 92% on 4L NC No leukocytosis. VBG pH 7.4. Flu negative, covid PCR pending Chest CTA motion compromised but no evidence of PE, advanced emphysema, small pleural effusions, mildly enlarged mediastinal and hilar lymph nodes that are nonspecific. Pulm nodules unchanged from prior studies Afebrile, no leukocytosis or opacities on imaging to suggest PNA Continue solu-medrol 40mg IV Q8H, Duonebs QIDR, incentive spirometry, supplemental O2 PT/OT evaluations once more stable from respiratory standpoint Pt said that she has oxygen at home and she supposed to use it daily (3) Diabetes mellitus, type 2: Plan: A1c 6.3 in May 2021. 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 Continue losartan, Toprol, Lasix MWF (5) Hyperlipidemia: Plan: Continue statin DVT Ppx: SQ Lovenox Code status: FULL PCP: Jese Dispo: Will discharge once medically stable Admission and Anticipated Discharge Date Admission Date: September 16, 2021 Subjective Pt was seen and examined for follow up of SOB Pt said that breathing is a little better this morning He said that she starting to bring her phlegm saturated well on 2L NC oxygen supplement Denies any chest pain, palpitation, dizziness and SOB Review of Systems Review of Systems: All systems reviewed & are unremarkable except as noted in Subjective Physical Exam Physical Exam: General- No acute distress Head- atraumatic Eyes- PERRL, EOMI, ENT- oropharynx clear Neck- supple, no JVD Lungs-+diminished BS Heart- regular rhythm; no murmur Abdomen- normal bowel sounds, soft, nontender Extremities- no calf tenderness Neuro- alert, oriented x 3; PERRL, EOMI; no facial palsy; no dysarthria Skin- warm & dry Results & Data Results & Data ([facility]) Vital Signs (Past 12 Hours) Vital Signs Temp Pulse Pulse Resp BP Pulse Ox 09/17/21 11:28 36.5 C 73 20 96/60 L 94 09/17/21 10:39 77 18 91 09/17/21 07:44 36.7 C 69 18 109/62 94 09/17/21 07:41 67 18 92 09/17/21 07:00 70 09/17/21 02:57 36.6 C 77 18 108/65 91 09/17/21 00:53 36.7 C 76 18 104/59 L 93
[2021-09-17] MEDS: ATORVASTATIN 20 MG TAB PO SCH (21:19)
[2021-09-18] MEDS: methylPREDNISolone 40 MG in SYRINGE 0 ML IV SCH ×3 (03:30→17:05)
[2021-09-18 06:42] LABS: Hemoglobin 14.3 g/dL (12.0-16.0); Mean Corpuscular Hemoglobin 32.6 pg (25-34); Mean Corpuscular Hgb Conc 34.9 g/dL (32-36); Mean Corpuscular Volume 93.6 fL (80-100); Mean Platelet Volume 9.1 fL (7.4-10.4); Platelet Count 287 K/uL (130-400); RDW Coefficient of Variation 13.6 % (11.5-14.5); RDW Standard Deviation 46.6 fL (36.4-46.3); Red Blood Count 4.38 M/uL (4.2-5.4); White Blood Count 10.17 K/uL (4.8-10.8)
[2021-09-18 07:30] LABS: BUN Creatinine Ratio 26.1 (10-20); Calcium 8.6 mg/dl (8.5-10.1); Creatinine Clr Calc Pharmacy 85.7 ml/min; Est GFR (African American) 110.5 ml/min; Est GFR (Non-African American) 95.3 ml/min
[2021-09-18] MEDS: ALBUT/IPRATROP 3MG/0.5MG NEB 3 ML VIAL NEB SCH ×3 (07:33→15:19)
[2021-09-18] MEDS ORDERED: MULTIVITAMIN TAB PO SCH (09:00)
[2021-09-18] MEDS ORDERED: FUROSEMIDE 20 MG TAB PO SCH (09:00)
[2021-09-18] MEDS ORDERED: POTASSIUM CHLORIDE 10 MEQ TABCR PO SCH (09:00)
[2021-09-18] MEDS: INSULIN ASPART 100 UNITS/ML 3 ML PEN SC SCH ×2 (09:19→12:36)
[2021-09-18] MEDS: CHOLECALCIFEROL 1,000 UNITS 25 MCG TAB PO SCH (09:20)
[2021-09-18] MEDS: UMECLIDINIUM/VILANTEROL 62.5/25MCG 7 PUFFS/INHALER INH SCH (09:21)
[2021-09-18] MEDS: FLUTICASONE PROPIONATE NA SPR 16 GM BTL NAE SCH (09:21)
[2021-09-18] MEDS: FLUTICASONE FUROATE 100MCG 14 PUFFS/INHALER INH SCH (09:21)
[2021-09-18] MEDS: LOSARTAN POTASSIUM 25 MG TAB PO SCH (09:22)
[2021-09-18] MEDS: METOPROLOL SUCC 25MG EXT REL TAB PO SCH (09:22)
[2021-09-18 13:00] LABS: Appearance Urine Cloudy (Clear); Bacteria Urine Automated 4+ (Negative); Bilirubin Urine Negative (Negative); Blood Urine Negative (Negative); Color Urine Yellow; Epithelial Cell Urine Auto >30 /lpf (0-5); Glucose Urine UA Negative (Negative); Ketones Urine Negative (Negative); Leukocyte Esterase Urine Trace (Negative); Nitrite Urine Positive (Negative); Protein Urine Negative (Negative); RBC Urine Automated 0-4 /hpf (0-4); Specific Gravity Urine 1.018 (1.000-1.030); Urobilinogen Urine Negative (Negative)
[2021-09-18] MEDS ORDERED: cefTRIAXone SODIUM 1,000 MG in DEXTROSE 5% 50 ML IV SCH (13:45)
[2021-09-18] MEDS ORDERED: AZTREONAM 1,000 MG in DEXTROSE 5% 100 ML IV SCH (14:00)
[2021-09-18] MEDS ORDERED: NITROFURANTOIN MONOHYDRATE 100 MG CAP PO SCH (16:45)
--- NOTE | 2021-09-24 10:50 | Discharge Summary ---
Date of Service September 18, 2021 Admission HPI Per Admitting Provider This is a 76-year-old female with PMH of COPD requiring oxygen at night, ILD, type 2 diabetes, dyslipidemia and other medical problems listed below who presents with progressive shortness of breath over the past few days months. At baseline, patient is able to ambulate and complete ADLs with minimal shortness of breath. Always wears 2 L NC O2 at bedtime and sometimes during the day when completing chores. However, has felt a flare of shortness of breath with exertion since last month when she completed course of azithromycin and prednisone taper. Symptoms persisted, and patient completed another course of azithromycin and followed up with PCP. Was noted to desaturate on home O2 with any type of movement like ambulation out of wheelchair or into shower. Even while on oxygen, notes saturation went down into the high 70s when she attempted to shower today. Was seen in clinic and urged to come to ED for further evaluation. Patient currently saturating at 94% on 4 L nasal cannula. Denies any fever, chills, cough or recent known viral infection. Did have some chest pain a month ago but had EKGs done in clinic that were unchanged. Chest pain is not persisted since then. Denies any wheezing, congestion, nausea, vomiting, abdominal pain, dysuria, diarrhea or constipation. Has been taking Trelegy inhaler daily as well as albuterol as needed. Is not very compliant with nebulizer treatments at home. Follows with Dr. Perez in pulmonology clinic. Admission Exam Per Admitting Provider General Appearance:WD/WN, vitals as above, NAD, sitting up in bed, pleasant, conversing easily Head: normocephalic, atraumatic Eyes:normal inspection, PERRL, conjunctivae normal, anicteric sclerae ENT: external ear and nose normal, oropharynx normal Neck: normal visual inspection, trachea midline, no thyromegaly Respiratory:normal respiratory effort, decreased lung sounds throughout. No wheeze, rales or rhonchi. No accessory muscle use Cardiovascular: regular rate, rhythm, no murmur, normal peripheral pulses, no BLE edema. Vessels: no JVD Chest: normal inspection of chest Abdomen/GI: normal bowel sounds, soft, nontender, no hepatosplenomegaly Extremities/Musculoskeletal: no cyanosis or clubbing, extremities motor strength 5/5 Neurologic: PERRL, EOMI, accommodation nl, no face palsy, no dysarthria, CN's II-XI intact bilaterally and moves all extremities Psychiatric:A+Ox3, euthymic affect Skin: no rashes, normal color, warm/dry Principal Diagnosis (1) Acute exacerbation of chronic obstructive pulmonary disease: (2) Acute hypoxemic respiratory failure: (3) Diabetes mellitus, type 2: (4) HTN (hypertension): (5) Hyperlipidemia: Discharge Exam General- No acute distress Head- atraumatic Eyes- PERRL, EOMI, ENT- oropharynx clear Neck- supple, no JVD Lungs-+diminished BS Heart- regular rhythm; no murmur Abdomen- normal bowel sounds, soft, nontender Extremities- no calf tenderness Neuro- alert, oriented x 3; PERRL, EOMI; no facial palsy; no dysarthria Skin- warm & dry Discharge Data Allergies Allergy/AdvReac Type Severity Reaction Status Date / Time Penicillins Allergy Severe Anaphylaxis Verified 09/24/21 10:31 adhesive tape Allergy Unknown Rash Verified 09/24/21 10:31 amoxicillin Allergy Unknown Verified 09/24/21 10:31 ciprofloxacin Allergy Unknown Verified 09/24/21 10:31 fluconazole [From Diflucan] Allergy Unknown Verified 09/24/21 10:31 Sulfa (Sulfonamide Allergy Unknown Verified 09/24/21 10:31 Antibiotics) Consultations 09/16/21 17:07 ED Decision to Admit Stat Ordered Studies 09/16/21 16:09 CT angio chest PE protocol Stat CT ANGIOGRAM OF THE CHEST CLINICAL HISTORY: Dyspnea. COMPARISON STUDY: Chest CT dated 07/10/2020. Chest x-ray dated 09/16/2021. TECHNIQUE: Following the IV administration of 120 cc of Optiray 320, CT angiogram of the chest was performed from the upper abdomen to the thoracic inlet utilizing the pulmonary embolus protocol. Images are reviewed in the axial, sagittal, and coronal planes. 3-D MIPS images are created and assessed. IV contrast was administered without complication. A dose lowering technique was utilized adhering to the principles of ALARA. The examination is compromised by motion artifact. CT DOSE: 243.75 mGy.cm FINDINGS: Thyroid: Imaged portions of the thyroid gland are normal in size and attenuation. Thoracic aorta: There is atherosclerotic calcification of the thoracic aorta, which is normal in caliber and demonstrates standard 3-vessel arch anatomy. No dissection is seen. There is at least mild stenosis at the origin of the left subclavian artery. Pulmonary vasculature: The pulmonary trunk is normal in caliber. There are no filling defects identified in main, lobar, or proximal segmental pulmonary branches to suggest pulmonary embolus. Evaluation of the segmental and subsegmental branches is significantly degraded in the lower lobes by motion artifact. Heart: The heart is normal in size and without pericardial effusion. There are coronary artery calcifications. Reflux of contrast into the IVC and hepatic veins suggests cardiac dysfunction. Lungs and pleural spaces: Evaluation of the lung parenchyma is compromised by motion artifact. Advanced emphysematous change is identified. There are small pleural effusions with bibasilar atelectasis the trachea and central airways appear clear. A 7 mm pleural-based nodule is seen in the left lower lobe along the major fissure on image #140. A six-month or pleural-based nodule in the left lower lobe as seen on image #163. A pleural-based nodule in the right lower lobe along the major fissure on image #127 is largely obscured by motion artifact. This is likely unchanged from previous. Mediastinum: There are mildly enlarged and is dominant lymph nodes. An AP window node measures 11 mm in short axis. Precarinal nodes measure up to 15 mm in short axis. Lyly: Enlarged hilar nodes measure up to 16 mm in short axis. Axillae: There is no axillary lymphadenopathy. Upper abdomen: Partially visualized upper abdominal viscera is within normal limits. Skeletal structures: The skeletal structures are osteopenic. Degenerative change and hyperkyphosis are noted in the thoracic spine. No lytic or blastic bony lesions are seen. Arthritic change is seen in the shoulders. IMPRESSION: 1. Motion compromised examination. 2. There is no evidence of pulmonary embolus in the main, lobar, or proximal segmental pulmonary arteries. Evaluation of the segmental and subsegmental lower lobe pulmonary arteries is significantly degraded by motion. 3. Advanced emphysema. 4. Small pleural effusions. 5. Mildly enlarged mediastinal and hilar lymph nodes are nonspecific and may be reactive. Clinical correlation will be required. 6. Subcentimeter pulmonary and pleural-based nodules are nonspecific and likely unchanged from prior studies. 7. Additional findings as above. ACT 112: Negative or not required by law. Electronically signed by: Moiz Powell M.D. 09/16/2021 5:10 PM Dictated:09/16/[id number] Transcribed: 09/16/211658 XR chest 1V portable CLINICAL HISTORY: Dyspnea. COMPARISON STUDY: No previous studies for comparison. TECHNIQUE: 1 view of the chest FINDINGS: Single frontal view of the chest demonstrates the cardiomediastinal silhouette to be within normal limits. There is hyperinflation of the lungs with attenuation of the pulmonary vasculature peripherally characteristic of underlying chronic obstructive pulmonary disease. Mild prominence of the interstitial markings is present which appears chronic in nature. The lungs are clear of alveolar opacities. There is no evidence for pleural effusion. There is no evidence for vascular congestion. There is no acute osseous pathology. IMPRESSION: No acute cardiopulmonary disease. Evidence for COPD and probable interstitial lung disease. ACT 112: Negative or not required by law. Electronically signed by: Rosendo Alfred M.D. 09/16/2021 4:20 PM Dictated:09/16/[id number] Transcribed: 09/16/211619 Hospital Course (1) Acute exacerbation of chronic obstructive pulmonary disease: (2) Acute hypoxemic respiratory failure: This is a 76-year-old female with PMH of COPD requiring oxygen at night, ILD, type 2 diabetes, dyslipidemia and other medical problems listed below who presents with progressive shortness of breath over the past few days. Progressive dyspnea on exertion. Completed Azythromycin course x 2 and prednisone taper x 1 in last month as outpatient Desaturated into high 70s when ambulating from wheelchair to bed in ED - now 92% on 4L NC No leukocytosis. VBG pH 7.4. Flu negative, covid PCR pending Chest CTA motion compromised but no evidence of PE, advanced emphysema, small pleural effusions, mildly enlarged mediastinal and hilar lymph nodes that are nonspecific. Pulm nodules unchanged from prior studies Afebrile, no leukocytosis or opacities on imaging to suggest PNA Continue solu-medrol 40mg IV Q8H, Duonebs QIDR, incentive spirometry, supplemental O2 PT/OT evaluations once more stable from respiratory standpoint Pt said that she has oxygen at home and she supposed to use it daily 09/18 very anxious to go home today her respiratory symptoms improve clinically 2 step was order, but case management confirmed that pt is on continuous oxygen supplement Pt was advised to use oxygen daily continuously Currently on solumedrol, will transition to prednisone on discharge Continue respiratory treatment Follow up with pulmonology outpatient UTI UA positive for nitrite/leukocytes and bacteria denies any urinary symptoms Urine cx pending Pt would like to go home today Will start on Macrobid due to allergies with cipro/Penicillin and sulfa Will discharge on Macrobid for 3 more days If culture resistance to Macrobid, will call pt to change the abx (3) Diabetes mellitus, type 2: A1c 6.3 in May 2021. Repeat in AM Hold home agents SSI while in-patient BSG AC HS (4) HTN (hypertension): Stable. Continue losartan, Toprol, Lasix MWF (5) Hyperlipidemia: Continue statin DVT Ppx: SQ Lovenox Code status: FULL PCP: Jese Dispo: Will discharge once medically stable Total Time Total Time Spent Total Time Spent (In Minutes): 35 minutes Discharge Plan Discharge Items Patient Disposition: Home - Self-Care Reason For Visit: COPD EXACERBATION Discharge Diagnosis: (1) Acute exacerbation of chronic obstructive pulmonary disease: (2) Acute hypoxemic respiratory failure: (3) Diabetes mellitus, type 2: (4) HTN (hypertension): (5) Hyperlipidemia: Activity: Resume your previous activity Non-emergency contact: Primary Care Provider Call non-emergency contact if: you have any medication questions Follow-up/Referrals: Tim Finn MD [Other] (Date & Time 10/08/2021 8:00 AM Provider [facility] Gary Sawant MD [Primary Care Provider] - (Date & Time 09/23/2021 11:20 AM Provider Gary Sawant MD Department [facility] ) Diet: Carb Consistent or DM2 Addtl Attending Provider Instructions: Follow up with your primary care provider Dr. Sawant on 11/24/2020 at 11:20 AM at the [facility] Continue oxygen supplement continuously Seek medical attention if you develop any fever or if shortness of breath worsening Pending Studies at Discharge: Yes Studies:: Urine culture Stand-Alone Forms: My [employer], Smoking Cessation Medications and DC Order Prescriptions: Continued (DME) Oxygen Home Liters Per Minute See Rx Instructions .ROUTE .MEDSUPPLY Qty: 2 RF: 0 (DME) Portable Oxygen Misc See Rx Instructions .ROUTE .MEDSUPPLY Qty: 1 RF: 0 albuterol sulfate 90 mcg/actuation HFA aerosol inhaler 2 inh INH Q6H PRN (Reason: shortness of breath or wheezing) Qty: 18 RF: 2 furosemide [Lasix] 20 mg tablet 20 mg PO .COMPLEX RF: 0 ipratropium-albuterol 0.5 mg-3 mg(2.5 mg base)/3 mL solution for nebulization 3 ml INH Q6H PRN (Reason: Shortness Of Breath) RF: 0 fluticasone propionate 50 mcg/actuation spray,suspension 1 sprays INTNAS DAILY RF: 0 potassium chloride 10 mEq capsule, extended release 10 meq PO .COMPLEX RF: 0 metformin 500 mg Tablet 500 mg PO BID RF: 0 atorvastatin [Lipitor] 20 mg Tablet 20 mg PO HS RF: 0 Premarin 0.3 mg Tablet 0.03 mg PO Q2D RF: 0 multivitamin Tablet 1 tab PO Q2D RF: 0 coenzyme Q10 10 mg Capsule 10 mg PO Q2D RF: 0 Vitamin C 100 mg Tablet 100 mg PO Q2D RF: 0 ibuprofen 200 mg Tablet 400 mg PO Q6H PRN (Reason: Pain) RF: 0 vitamin D96-qrobw acid 0.5-1 mg Tablet 1 tab PO QAM RF: 0 cholecalciferol (vitamin D3) [Vitamin D3] 25 mcg (1,000 unit) Tablet 25 mcg PO QAM RF: 0 Trelegy Ellipta 100-62.5-25 mcg blister with device 1 inh INH QAM RF: 0 meclizine 25 mg tablet 12.5 mg PO TID PRN (Reason: Vertigo) RF: 0 promethazine 25 mg tablet 25 mg PO Q6H PRN (Reason: Nausea) RF: 0 losartan 25 mg tablet 25 mg PO DAILY RF: 0 metoprolol succinate 25 mg tablet extended release 24 hr 12.5 mg PO DAILY RF: 0 Discharge Orders: Discharge Order (Routine); Ordered 09/18/21 Ordered By: Justo Coulter/Other Patient Handouts: A1C, Managing Type 2 Diabetes Admission Data Admit Date/Time: 09/16/21 17:21 Attending Provider: Justo Angelo Admit Provider: Ani Brown Primary Care Provider: Gary Sawant Other Providers: Ani Brown Other Interventions: Discharge Summary Assessment (RN) Last Done: 09/18/21 17:18
== END 2021-09-18 17:56 | disposition home or self-care (01) | DRG 190 ==
LOC: ED 11:54 → 2N 17:21 → SUATTDRO 17:21 → 2N 23:02